=== PATIENT | female | born 1990 | race Asian ===

== ENCOUNTER 2019-04-07 11:33 | Emergency (ER) | payer OTHER ==
[~2019-04-07] VITALS: Ht 172.7 cm; Wt 65.8 kg
[2019-04-07 12:19] VITALS: BP 120/80
--- NOTE | 2019-04-07 12:21 | NUR ---
ED Nurse Note: pt c/o uti symptoms ermd abby done urine sent to lab.
--- NOTE | 2019-04-07 12:24 | Emergency Room Report ---
History of Present Illness General Chief Complaint: Female Urogenital Problems Source: Patient Present Illness HPI 28-year-old female presents to the emergency department complaining of urinary frequency, dysuria and urgency since yesterday. Patient denies low back pain, fevers, chills or hematuria. Patient denies suspicion of she states she is currently on her menstrual cycle. Patient denies abdominal pain or tenderness denies nausea, vomiting, constipation or diarrhea. Denies rashes are swollen tender lymph nodes. No other aggravating or relieving factors at this time. Allergies: Coded Allergies: No Known Allergies (Unverified , 04/07/19) Patient History Past Medical History: see triage record Past Surgical History: none Pertinent Family History: none Now: No - on meses now : 2 Para: 1 Reviewed Nursing Documentation: PMH: Agreed; PSxH: Agreed Nursing Documentation-PMH Past Medical History: No Stated History Review of Systems All Other Systems: negative except mentioned in HPI Physical Exam Vital Signs Date Time Temp Pulse Resp B/P (MAP) Pulse Ox O2 Delivery O2 Flow Rate FiO2 04/07/19 11:47 98.2 64 18 120/80 (93) 99 Room Air Sp02 EP Interpretation: reviewed, normal General Appearance: no apparent distress, alert, GCS 15, non-toxic Head: normocephalic, atraumatic Eyes: bilateral eye normal inspection, bilateral eye PERRL ENT: hearing grossly normal, normal voice Neck: full range of motion Respiratory: lungs clear, normal breath sounds, speaking full sentences Cardiovascular #1: regular rate, rhythm Gastrointestinal: normal bowel sounds, non tender, soft Genitourinary: normal inspection, no CVA tenderness Musculoskeletal: back normal, gait/station normal, normal range of motion, non- tender Neurologic: alert, oriented x3, responsive, motor strength/tone normal, sensory intact, normal gait, speech normal, grossly normal Psychiatric: judgement/insight normal Skin: normal color, no rash, warm/dry, well hydrated Lymphatic: no adenopathy Medical Decision Making PA Attestation Dr. Chao Is my supervising Physician whom patient management has been discussed with. Diagnostic Impression: Primary Impression: UTI (urinary tract infection) Qualified Codes: N30.01 - Acute cystitis with hematuria ER Course 28-year-old female presents to the emergency department complaining of urinary frequency, dysuria and urgency since yesterday. Patient denies low back pain, fevers, chills or hematuria. Patient denies suspicion of she states she is currently on her menstrual cycle. Patient denies abdominal pain or tenderness denies nausea, vomiting, constipation or diarrhea. Denies rashes are swollen tender lymph nodes. No other aggravating or relieving factors at this time. Ddx considered but are not limited to UTi , Pyelo, STI, Stone, Cystitis Vital signs: are WNL, pt. is afebrile H&PE are most consistent with UTI ORDERS: - UA labs are attached --Positive for UTI- presence of bacteria and elevation in inflammatory markers. -Urine Hcg: NEgative ED INTERVENTIONS: Pyridium PO 200mg. DISCHARGE: At this time pt. is stable for d/c to home. Will provide printed patient care instructions, and any necessary prescriptions. Care plan and follow up instructions have been discussed with the patient prior to discharge. Labs Test 04/07/19 11:55 Urine Color Pale yellow Urine Appearance Slightly cloudy Urine pH 7 (4.5-8.0) Urine Specific [place] 1.005 (1.005-1.035) Urine Protein 2+ (NEGATIVE) Urine Glucose (UA) Negative (NEGATIVE) Urine Ketones Negative (NEGATIVE) Urine Blood 5+ (NEGATIVE) Urine Nitrite Negative (NEGATIVE) Urine Bilirubin Negative (NEGATIVE) Urine Urobilinogen Normal MG/DL (0.0-1.0) Urine Leukocyte Esterase 2+ (NEGATIVE) Urine RBC 10-15 /HPF (0 - 2) Urine WBC 10-15 /HPF (0 - 2) Urine Squamous Epithelial Cells Few /LPF (NONE/OCC) Urine Bacteria Few /HPF (NONE) Urine HCG, Qualitative Negative (NEGATIVE) Last Vital Signs Date Time Temp Pulse Resp B/P (MAP) Pulse Ox O2 Delivery O2 Flow Rate FiO2 04/07/19 12:19 98.2 18 120/80 99 Room Air 04/07/19 11:47 64 Status: improved Disposition: HOME, SELF-CARE Condition: Stable Referrals: ZHANE AMBROSIO,REFERRING (PCP) Patient Instructions: Urinary Tract Infection Additional Instructions: Take medications as directed. Follow up with a Primary Care Provider in 3-5 days, even if your symptoms have resolved. --Please review list of primary care clinics, if you do not already have a primary care provider Return sooner to ED if new symptoms occur, or current symptoms become worse. - Please note that this Emergency Department Report was dictated using [employer] controller technology software, occasionally this can lead to erroneous entry secondary to interpretation by the dictation equipment. Joy Lu Apr 07, 2019 12:24
[2019-04-07] MEDS ORDERED: Phenazopyridine 200mg tab ORAL ONE (12:30)
[2019-04-07 12:46] LABS: APPEARANCE,URINE SLIGHTLY CLOUDY; BILIRUBIN, URINE NEGATIVE (NEGATIVE); COLOR,URINE PALE YELLOW; GLUCOSE, URINE (UA) NEGATIVE (NEGATIVE); KETONES,URINE NEGATIVE (NEGATIVE); LEUKOCYTE ESTERASE ,URINE 2+ (NEGATIVE); NITRITE,URINE NEGATIVE (NEGATIVE); PH,URINE 7 (4.5-8.0); PROTEIN,URINE 2+ (NEGATIVE); UROBILINOGEN,URINE NORMAL MG/DL (0.0-1.0)
[2019-04-07] MEDS ORDERED: NITROFURANTOIN100 M2 ORAL (13:06)
[2019-04-07] MEDS ORDERED: PHENAZOPYRIDIN100 MG ORAL (13:06)
[2019-04-07 13:17] VITALS: BP 118/80
--- NOTE | 2019-04-07 13:20 | NUR ---
ED Nurse Note: pt clearded for d/c by ermd pt given aci and script verbalized understanding ambulated out of er with strong and steady gait.
== END 2019-04-07 13:18 | disposition home or self-care (01) ==
LOC: EMR 12:14
DX: N30.01 Acute cystitis with hematuria (principal)
CPT/HCPCS: 81003; 81025; 87086; 87181; 99283